=== PATIENT | female | born 1995 | race Caucasian/White ===

== ENCOUNTER 2018-02-18 09:10 | Emergency (ER) | payer OTHER ==
[~2018-02-18] VITALS: Ht 165.1 cm; Wt 67.1 kg
[2018-02-18 09:20] VITALS: BP 118/80; Ht 165.1 cm; Wt 67.1 kg
== END 2018-02-18 12:02 | disposition home or self-care (01) ==
LOC: ED 09:10
DX: S61.211A Laceration without foreign body of left index finger without damage to nail, initial encounter (principal); W26.0XXA Contact with knife, initial encounter; Y93.89 Activity, other specified; Y92.89 Other specified places as the place of occurrence of the external cause; Y99.8 Other external cause status
CPT/HCPCS: 90715; J2001

== ENCOUNTER 2018-02-28 08:16 | Emergency (ER) | payer OTHER ==
[~2018-02-28] VITALS: Ht 165.1 cm; Wt 67.6 kg
[2018-02-28 08:30] VITALS: BP 120/67; Ht 165.1 cm; Wt 67.6 kg
== END 2018-02-28 08:47 | disposition home or self-care (01) ==
LOC: ED 08:16
DX: Z48.02 Encounter for removal of sutures (principal)